=== PATIENT | female | born 1930 | race Caucasian/White ===

== ENCOUNTER → 2016-11-08 | Outpatient (CLI) | payer OTHER ==
[~2016-11-08] MED LIST: ASPI-232 PO; ATEN50TA PO; GLUCTAB7 PO; HYDR25TA4 PO; LEVO150T PO; LOSA100T65 PO
[2016-11-08 13:37] LABS: ALT/SGPT 19 U/L (12-78); AST/SGOT 18 U/L (15-37); BLOOD UREA NITROGEN 35 mg/dl (7-18); BUN/CREATININE RATIO 26.9 (10-20); CALCIUM 9.2 mg/dl (8.5-10.1); CARBON DIOXIDE 26 mmol/L (21-32); CHLORIDE 103 mmol/L (98-107); GLUCOSE 92 mg/dl (70-99); SODIUM 139 mmol/L (136-145)
[2016-11-08 13:47] LABS: ALKALINE PHOSPHATASE 89 U/L (45-117); THYROID STIMULATING HORMONE 0.176 uIu/ml (0.300-4.500)
== END | disposition home or self-care (01) ==
LOC: C.LABBC 11:24
PROVIDERS: ATTEND Internal Medicine
DX: E03.9 Hypothyroidism, unspecified (principal); F03.90 Unspecified dementia, unspecified severity, without behavioral disturbance, psychotic disturbance, mood disturbance, and anxiety

== ENCOUNTER → 2017-04-11 | Outpatient (CLI) | payer OTHER | END | disposition home or self-care (01) | LOC: C.LABBC 11:21 | PROVIDERS: ATTEND Internal Medicine | DX: N18.3 Chronic kidney disease, stage 3 (moderate) (principal) ==

== ENCOUNTER → 2017-05-23 | Outpatient (CLI) | payer OTHER | LOC: C.LABPVFM 12:44 | PROVIDERS: ATTEND Internal Medicine | DX: E03.9 Hypothyroidism, unspecified (principal) ==

== ENCOUNTER → 2017-06-27 | Outpatient (CLI) | payer OTHER ==
[2017-06-27 12:56] LABS: THYROID STIMULATING HORMONE 41.1 uIu/ml (0.300-4.500)
== END | disposition home or self-care (01) ==
LOC: C.LABOAKS 10:10
PROVIDERS: ATTEND Internal Medicine
DX: E03.9 Hypothyroidism, unspecified (principal)

== ENCOUNTER 2017-07-18 07:07 | Emergency (ER) | payer OTHER ==
[~2017-07-18] VITALS: Ht 172.7 cm; Wt 96.1 kg
[2017-07-18 07:13] VITALS: TEMP 36.6; Ht 172.7 cm; Wt 96.1 kg
[2017-07-18] MEDS ORDERED: RANITIDINE HCL 150 MG TAB PO ONE (07:30)
--- NOTE | 2017-07-18 07:37 | EMERGENCY ROOM VISIT NOTE ---
ED Visit Note First contact with patient: 07:16 Patient was seen by our PA/CIVIL CAD DESIGNER. I was involved in the patient's care and did evaluate the patient myself. I was involved in the care throughout the ER stay. The patient has a allergic type rash noted across the chest. She had an influenza injection yesterday. This may be a localized allergic reaction. She has no issues with her airway, no lip, face or tongue swelling, no wheezing or shortness of breath. The patient will be given antihistamines and a very small dose of prednisone. If worsening, she can return. She should do well over the next few days.
[2017-07-18] MEDS ORDERED: WHEAPOW13 PO (08:32)
[2017-07-18] MEDS ORDERED: PANT40TA PO (08:32)
[2017-07-18] MEDS ORDERED: DONE10TA12 PO (08:32)
[2017-07-18] MEDS ORDERED: NMN5 PO (08:32)
[2017-07-18] MEDS ORDERED: LEVO50TA PO (08:32)
[2017-07-18] MEDS ORDERED: PRED20TA2 PO (08:50)
[2017-07-18 09:02] VITALS: BP 174/77; PULSE 50; O2SAT 96
--- NOTE | 2017-07-18 09:23 | EMERGENCY ROOM VISIT NOTE ---
History First contact with patient: 07:16 Chief Complaint: ALLERGIC REACTION Stated Complaint: ALLERGIC REACTION Nursing Triage Summary: pt went and got flu shot yesterday approx 2 hours after flu shot developed hives on chest area. pt was given tylenol and cold compresses did not help. rash localized to chest area only. pt denies any difficulty breathing History of Present Illness The patient is a 87 year old female who presents to the Emergency Room with complaints of rash on the front of her chest that began after receiving her flu shot yesterday. The area is very pruritic. The patient is a resident at the [facility] and they were treating her with Tylenol and cool compresses. The patient arrives via ambulance because of her reaction. Patient has a history of mild dementia and is at her baseline according to her father and son who arrive at the same time as the patient. The patient is not having breathing difficulty or abdominal pain. No difficulty with swelling of the mouth or throat. She is otherwise pleasant and without other complaint. She rates her discomfort a 2/ 10. Review of Systems More than 10 systems were reviewed and otherwise negative with the exception of history of present illness. Past Medical/Surgical History Dementia Family History No pertinent family history Social History Smoking Status: Never Smoker Alcohol Use: none Marital Status: Housing Status: lives with significant other Current/Historical Medications Scheduled Aspirin (Aspir-81), 1 TAB PO DAILY Donepezil Hydrochloride (Aricept), 10 MG PO DAILY Hydrochlorothiazide (Hctz), 25 MG PO DAILY Levothyroxine Sodium (Synthroid), 50 MCG PO DAILY Memantine (Namenda), 5 MG PO BID Pantoprazole (Protonix), 40 MG PO DAILY Prednisone (Prednisone Tab), 20 MG PO DAILY Wheat Dextrin (Benefiber), 1 TBS PO DAILY Physical Exam Vital Signs Date Time Temp Pulse Resp B/P (MAP) Pulse Ox O2 Delivery O2 Flow Rate FiO2 07/18/17 09:02 50 18 174/77 96 07/18/17 08:47 18 220/78 96 Room Air 07/18/17 08:38 51 18 181/144 98 Room Air 07/18/17 07:13 36.6 52 18 190/77 97 Room Air Physical Exam VITALS: Vitals are noted on the nurse's note and reviewed by myself. Vital signs stable. GENERAL: Pleasant elderly female who is hard of hearing. She appears with mild dementia but is cooperative. MOUTH: Mucous membranes moist. Tonsils are not enlarged. Pharynx without erythema, blood, or exudate. Uvula midline. Airway patent. NECK: Supple without nuchal rigidity. No lymphadenopathy. No thyromegaly. Cervical spine is nontender. HEART: Regular rate and rhythm without murmurs gallops or rubs. LUNGS: Clear to auscultation bilaterally without wheezes, rales or rhonchi. No retractions or accessory muscle use. ABDOMEN: Positive normal bowel sounds x 4. Soft, nontender, without masses or organomegaly. No guarding or rebound tenderness. SKIN: The skin was with erythematous rash across the anterior chest wall with several excoriated areas Medical Decision & Procedures Medications Administered Medications (Trade) Dose Ordered Sig/Bhavya Route Start Time Stop Time Status Last Admin Dose Admin Diphenhydramine HCl (Benadryl Cap) 25 mg NOW ONCE PO 07/18/17 07:30 07/18/17 07:31 DC 07/18/17 07:32 25 MG Ranitidine HCl (zANTac TAB) 150 mg NOW ONCE PO 07/18/17 07:30 07/18/17 07:31 DC 07/18/17 07:32 150 MG Prednisone (PredniSONE TAB) 20 mg NOW STAT PO 07/18/17 07:36 07/18/17 07:37 DC 07/18/17 07:41 20 MG ED Course Physical exam and history were performed. Nursing notes, EMR, and Medication List were personally reviewed. Patient appears to have allergic reaction/rash primarily on her chest wall. The patient does not appear toxic/anaphylactic otherwise. She has not had any medication at the [facility] today. The case was discussed with my attending physician, Dr. Rosa, who also independently evaluated the patient. The patient was given oral prednisone, oral Benadryl, and oral Zantac here in the department. She was monitored for greater than 90 minutes and did have some improvement of her symptoms on reevaluation. The patient feels comfortable with being discharged and this seems reasonable. She will be given a continuation course of prednisone for the next several days. She may continue [id number] medication and was otherwise invited back to the ER with any new, worsening, or concerning symptoms. The chart was completed utilizing [employer] Voice Recognition Software. Grammatical errors, random word insertions, pronoun errors, and incomplete sentences are an occasional consequence of this system due to software limitations, ambient noise, and hardware issues. Any formal questions or concerns about the content, text, or information contained within the body of this dictation should be directly addressed to the provider for clarification. . Medical Decision Differential diagnosis: Etiologies such as allergic reaction, anaphylaxis, urticaria, Moreno-Karsten syndrome, toxic epidermal necrolysis, erythema multiforme, cellulitis, as well as others were entertained. Medication Reconcilliation Current Medication List: was personally reviewed by me Blood Pressure Screening Patient's blood pressure: Elevated blood pressure Blood pressure disposition: Referred to PCP Impression Primary Impression: Allergic reaction Departure Information Dispostion Home / Self-Care Condition GOOD Prescriptions Prednisone (Prednisone Tab) 20 Mg Tab 20 MG PO DAILY for 4 Days, #4 TAB Prov: Jeremias Brewster PA-C 07/18/17 Referrals Payton Shannno (PCP) Forms HOME CARE DOCUMENTATION FORM, IMPORTANT VISIT INFORMATION Patient Instructions [facility] Additional Instructions You were seen and evaluated today on an emergency basis only. This is not a substitute for, or an effort to provide, complete comprehensive medical care. It is not possible to recognize and treat all injuries or illnesses in a single emergency department visit. For this reason it is recommended that you followup with your providers at the [facility] the next 1-2 days for a recheck. Take prednisone 20 mg daily for the next 4 days. Started this medication tomorrow. You may use [id number]-[id number] Benadryl 25 mg every 6 hours. You may also take Zantac 150 milligrams every 12 hours. You are welcome to return to the emergency department anytime with new, worsening, or concerning symptoms.
== END 2017-07-18 09:03 | disposition home or self-care (01) ==
LOC: EDBD 07:07 → C.EDB 07:08
DX: R21 Rash and other nonspecific skin eruption (principal); T50.B95A Adverse effect of other viral vaccines, initial encounter; F03.90 Unspecified dementia, unspecified severity, without behavioral disturbance, psychotic disturbance, mood disturbance, and anxiety; Z79.82 Long term (current) use of aspirin

== ENCOUNTER → 2017-09-21 | Outpatient (CLI) | payer OTHER ==
[~2017-09-21] MED LIST changes: -ATEN50TA PO; +DONE10TA12 PO; -GLUCTAB7 PO; -LEVO150T PO; +LEVO50TA PO; -LOSA100T65 PO; +NMN5 PO; +PANT40TA PO; +WHEAPOW13 PO
== END | disposition home or self-care (01) ==
LOC: C.LABOAKS 09:05
PROVIDERS: ATTEND Internal Medicine
DX: Z00.00 Encounter for general adult medical examination without abnormal findings (principal); E03.9 Hypothyroidism, unspecified

== ENCOUNTER → 2017-11-07 | Outpatient (CLI) | payer OTHER | END | disposition home or self-care (01) | LOC: C.LABOAKS 10:07 | PROVIDERS: ATTEND Internal Medicine | DX: Z00.00 Encounter for general adult medical examination without abnormal findings (principal); E03.9 Hypothyroidism, unspecified ==

== ENCOUNTER → 2017-12-26 | Outpatient (CLI) | payer OTHER | END | disposition home or self-care (01) | LOC: C.LABOAKS 13:52 | PROVIDERS: ATTEND Internal Medicine | DX: E03.9 Hypothyroidism, unspecified (principal) ==